=== PATIENT | male | born 1990 | race Caucasian/White ===

== ENCOUNTER 2017-09-29 20:57 | Emergency (ER) | payer SELFPAY | END 2017-09-29 22:25 | disposition home or self-care (01) | LOC: D.ER 20:57 | DX: L25.9 Unspecified contact dermatitis, unspecified cause (principal) ==

== ENCOUNTER 2017-10-01 20:32 | Emergency (ER) | payer SELFPAY | END 2017-10-01 23:50 | disposition home or self-care (01) | LOC: D.ER 20:32 | DX: L50.9 Urticaria, unspecified (principal); T78.40XA Allergy, unspecified, initial encounter; X58.XXXA Exposure to other specified factors, initial encounter; F17.200 Nicotine dependence, unspecified, uncomplicated ==